=== PATIENT | male | born 1965 | race Caucasian/White ===

== ENCOUNTER 2017-07-21 18:02 | Emergency (ER) | payer BC ==
[2017-07-21 18:57] VITALS: BP 167/93
--- NOTE | 2017-07-21 19:11 | UC ---
Eye Complaint HPI - HPI Summary HPI Summary: pt is c/o L eye irritation for 3 days with light sensitivity. he wears contacts but denies any acute injury. he has had something similar twice in the past that resolved on its own. states Hope vision dx with dry eyes. denies discharge and visual loss. - History of Current Complaint Chief Complaint: UCEye Stated Complaint: EYE COMPLAINT (L) Time Seen by Provider: 07/21/17 19:04 Hx Obtained From: Patient, Family/Manager Chemical Onset/Duration: Gradual Onset Timing: Constant Pain Intensity: 9 Character: Sharp Aggravating Factor(s): Light Alleviating Factor(s): Nothing Associated Signs And Symptoms: Positive: Photophobia - L eye. Negative: Drainage (Purulent), Vision Impairment Bilateral, Swelling - Risk Factors Penetrating Injury Risk Factor: Negative Globe Rupture Risk Factors: Negative - Allergies/Home Medications Allergies/Adverse Reactions: Allergies Allergy/AdvReac Type Severity Reaction Status Date / Time No Known Allergies Allergy Verified 07/21/17 18:51 Home Medications: Home Medications Ibuprofen TAB* [Advil TAB*] 600 mg PO Q6H PRN 07/21/17 [History Confirmed ] PMH/Surg Hx/FS Hx/Imm Hx - Additional Past Medical History Additional PMH: dry eyes - Surgical History Surgical History: Yes Surgery Procedure, Year, and Place: back surgery - Family History Known Family History: Negative: Other - [facility] [place] - Social History Occupation: Employed Full-time Lives: With Family Alcohol Use: None Substance Use Type: None Smoking Status (MU): Former Smoker When Did the Patient Quit Smoking/Using Tobacco: 2001 - Immunization History Most Recent Tetanus Shot: 2011 Vaccination Up to Date: Yes Review of Systems Constitutional: Negative Skin: Negative Eyes: Eye Redness - L, Photophobia - L ENT: Negative Respiratory: Negative Cardiovascular: Negative Gastrointestinal: Negative Genitourinary: Negative Motor: Negative Neurovascular: Negative Musculoskeletal: Negative Neurological: Negative Psychological: Negative Is Patient Immunocompromised?: No All Other Systems Reviewed And Are Negative: Yes Physical Exam Triage Information Reviewed: Yes Appearance: Well-Appearing Vital Signs: Initial Vital Signs Temp 97.7 F 07/21/17 18:52 Pulse 82 07/21/17 18:52 Resp 16 07/21/17 18:52 BP 167/93 07/21/17 18:52 Pulse Ox 100 07/21/17 18:52 Vital Signs Reviewed: Yes Eyes: Positive: Other: - Visual acuity OD 20/50, OS 20/30, ou 20/25. Sunglasses removed for exam. No periorbital edema or erythema. PERRL. EOMI. No exudates. OS deeply injected and photophobic. AC's clear. Lids everted and No FB's. Tetraciane OS, stained. 2mm opacity cornea at nine o clock. no perforation, dendrites or abrasion. No FB seen. No auricular adenopathy. Globes not firm. ENT: Positive: Pharynx normal, TMs normal. Negative: Nasal congestion, Nasal drainage Neck: Positive: Supple, Nontender, No Lymphadenopathy Respiratory: Positive: Lungs clear, Normal breath sounds Cardiovascular: Positive: RRR, No Murmur Abdomen Description: Positive: Nontender, No Organomegaly, Soft Bowel Sounds: Positive: Present Musculoskeletal: Positive: ROM Intact Neurological: Positive: Alert Psychological: Positive: Age Appropriate Behavior Skin Exam: Normal Eye Complaint Course/Dx - Course Course Of Treatment: HX, PE D/W DR WELLS-OPTHAMOLOGY. HE REQUEST I TX PT WITH VIGAMOX q2 HOURS AND PT F/U JUST BEFORE 8AM TOMORROW. PT/ AGREE TO TX PLAN. - Differential Dx/Diagnosis Provider Diagnoses: Corneal ulcer left eye Discharge - Sign-Out/Discharge Documenting (check all that apply): Discharge/Admit/Transfer - Discharge Plan Condition: Stable Disposition: HOME Prescriptions: Moxifloxacin 0.5% OPHTH(NF) [Vigamox 0.5% OPHTH(NF)] 0.5 % OP Q2HR 7 Days #1 roseline Patient Education Materials: Corneal Ulcer (ED) Forms: *Work Release Referrals: Ko Salazar MD [Medical Doctor] - Additional Instructions: FOLLOW UP WITH DR WELLS AT THE OFFICE OF DR SALAZAR TOMORROW AT 7:45 AM JUST BEFORE THEY OPEN AT 8AM. NO CONTACT USE UNTIL CLEARED BY THE EYE DOCTOR. CALL THE EYE DOCOTR [facility] P[facility]ER FOR ANY WORSENING OR CHANGES PRIOR TO YOUR AM FOLLOW UP APPOINTMENT. - Billing Disposition and Condition Condition: STABLE Disposition: HOME
[2017-07-21] MEDS ORDERED: Fluorescein Sod TOPICAL 0.6* 0.6 MG TEST OPHTHALMIC ONE ×2 (19:13→19:15)
[2017-07-21] MEDS ORDERED: Tetracaine 0.5% OPTH.SOL 4 ML* 1 DROP BTL BOTH EYES ONE (19:16)
[2017-07-21] MEDS ORDERED: Tetracaine 0.5% OPTH.SOL 4 ML* 1 DROP BTL ONE (19:17)
[2017-07-21] MEDS ORDERED: Acetaminophen TAB* 325 MG PO ONE (19:34)
[2017-07-21] MEDS ORDERED: Ibuprofen ADULT LIQ* 600 MG/30 ML UDC PO ONE (19:34)
== END 2017-07-21 20:07 | disposition home or self-care (01) ==
LOC: UCCORT 18:02
DX: H16.002 Unspecified corneal ulcer, left eye (principal); Z87.891 Personal history of nicotine dependence
CPT/HCPCS: 99213; A9270-GY; G0463